=== PATIENT | female | born 1975 | race Caucasian/White ===

== ENCOUNTER 2016-09-30 22:58 | Emergency (ER) | payer OTHER ==
[~2016-09-30] VITALS: Ht 160 cm; Wt 116.0 kg
[2016-09-30 23:07] VITALS: BP 129/75; PULSE 77; RESP 18; TEMP 98.5; O2SAT 95
[2016-09-30] MEDS ORDERED: DIFL150T PO (23:09)
--- NOTE | 2016-09-30 23:09 | PD ---
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 no pelvic or abdominal pain. no n/v/d. no fever/chills. pruritus and burning has become moderate and constant. lmp last month however patient does not recall exact date. pt has recently begun sexual intercourse with her boyfriend however is doubtful she has an STD. PFSH Social History Tobacco Use: Yes (/2 PPD) Allergies-Medications (Allergen,Severity, Reaction): Coded Allergies: No Known Allergies (Unverified , 09/30/16) Reported Meds & Prescriptions Reported Meds & Active Scripts Active Reported [Depression] Unknown Dose PO HS Levothyroxine (Levothyroxine Sodium) 25 Mcg Tab Unknown Dose PO DAILY Review of Systems General / Constitutional: No: Fever Genitourinary: No: Urgency, Frequency, Dysuria, Nocturia, Hematuria, Decreased Urinary Output, Pelvic Pain, Flank Pain, Dyspareunia Physical Exam Narrative GENERAL: 41 yo F, WNWD, NAD, speaking full sentences SKIN: Warm and dry. CARDIOVASCULAR: Regular rate and rhythm without murmurs, gallops, or rubs. RESPIRATORY: Breath sounds equal bilaterally. No accessory muscle use. GASTROINTESTINAL: Abdomen soft, non-tender, nondistended. MUSCULOSKELETAL: No cyanosis, or edema. BACK: Nontender without obvious deformity. No CVA tenderness. Data Data Last Documented VS Vital Signs Date Time Temp Pulse Resp B/P Pulse Ox O2 Delivery O2 Flow Rate FiO2 09/30/16 23:07 98.5 77 18 129/75 95 VS reviewed Orders Fluconazole (Diflucan) (09/30/16 23:30) MDM Medical Decision Making Medical Screen Exam Complete: Yes Emergency Medical Condition: Yes Medical Record Reviewed: Yes Differential Diagnosis BV, STD, candidiasis, TOA considered unlikely Narrative Course diflucan script. work note provided at patient's request. return precautions discussed. pt ok for discharge. 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 Hopefully, we have met your expectations on today's visit. You are welcome to return to [facility] at any time, as we are committed to meeting the health care needs of our community. Med/Other Pt SpecificInfo: Prescription(s) given Disposition: 01 DISCHARGE HOME Condition: Chance Mccoy MD Sep 30, 2016 23:09
[2016-09-30] MEDS ORDERED: LEVO25TA4 PO (23:12)
[2016-09-30] MEDS ORDERED: [UNRECOGNIZED DRUG - OTHER] (23:12)
[2016-09-30] MEDS ORDERED: Depression PO (23:13)
[2016-09-30] MEDS ORDERED: FLUCONAZOLE 100 MG TAB PO ONE (23:30)
== END 2016-09-30 23:35 | disposition home or self-care (01) ==
LOC: PHED 22:58
DX: B37.3 Candidiasis of vulva and vagina (principal)
CPT/HCPCS: 99283

== ENCOUNTER 2017-03-16 10:09 | Emergency (ER) | payer OTHER ==
[~2017-03-16] VITALS: Ht 160 cm; Wt 125.0 kg
[~2017-03-16 10:09] MED LIST: Depression PO; LEVO25TA4 PO
[2017-03-16 10:15] VITALS: BP 131/97; PULSE 80; RESP 16; TEMP 98.4; O2SAT 99
--- NOTE | 2017-03-16 11:00 | PD ---
HPI Chief Complaint: Musculoskeletal Complaint Time Seen by Provider: 10:54 Travel History International Travel<30 days: No Contact w/Intl Traveler<30days: No Traveled to known affect area: No History of Present Illness HPI 42-year-old female presents to the emergency department for evaluation of right ankle injury that occurred approximately one month ago. She states she rolled her ankle. She denies any other injury. No head drowsy. No neck pain or back pain. No chest pain or abdominal pain. No nausea, vomiting, diarrhea. She states she broke her foot as a child. She states she felt the patient would get better, but has not. She reports history of hypothyroidism and takes levothyroxine. No other medical problems and she takes no other prescribed medications. She is taken Tylenol ibuprofen for the pain. Severity is mild to moderate. Exacerbating factors are walking and movement. Alleviating factors rest. No radiation of pain. PFSH Past Medical History Depression: Yes Migraines: Yes Thyroid Disease: Yes (HYPOTHYROIDISM) ?: Not : 3 Para: 1 : 2 Past Surgical History Section: Yes (1995) Cholecystectomy: Yes Social History Alcohol Use: Yes ("ONCE IN A BLUE [employer]") Tobacco Use: Yes (1PPD) Substance Use: No Allergies-Medications (Allergen,Severity, Reaction): Coded Allergies: No Known Allergies (Unverified Adverse Reaction, Unknown, 03/16/17) Reported Meds & Prescriptions Reported Meds & Active Scripts Active Reported Levothyroxine (Levothyroxine Sodium) 25 Mcg Tab Unknown Dose PO DAILY Review of Systems Except as stated in HPI: all other systems reviewed are Neg Physical Exam Narrative GENERAL: Well-nourished, well-developed female patient, afebrile. SKIN: Focused skin assessment warm/dry. No erythema or warmth over right ankle. No lacerations or abrasions. HEAD: Normocephalic. Atraumatic. EYES: No scleral icterus. No injection or drainage. NECK: Supple, trachea midline. No JVD or lymphadenopathy. CARDIOVASCULAR: Regular rate and rhythm without murmurs, gallops, or rubs. RESPIRATORY: Breath sounds equal bilaterally. No accessory muscle use. Lungs sounds are clear to auscultation GASTROINTESTINAL: Abdomen soft, non-tender, nondistended. MUSCULOSKELETAL: No cyanosis, or edema. Shows tenderness over right medial ankle. No obvious deformity. Patient has full sensation in the distal right lower extremity. Right pedal pulse is 2+. BACK: Nontender without obvious deformity. No CVA tenderness. Data Data Last Documented VS Vital Signs Date Time Temp Pulse Resp B/P (MAP) Pulse Ox O2 Delivery O2 Flow Rate FiO2 03/16/17 10:15 98.4 80 16 131/97 (108) 99 Orders Orders Ankle, Complete ([id number]) (03/16/17 ) [facility] Medical Decision Making Medical Screen Exam Complete: Yes Emergency Medical Condition: Yes Medical Record Reviewed: Yes Interpretation(s) x-ray right ankle - CONCLUSION: Unremarkable examination of the right ankle. Differential Diagnosis Fracture versus dislocation versus contusion versus sprain versus muscle strain Narrative Course 42-year-old female presents to the emergency department for evaluation of right ankle pain for 1 month after she rolled her ankle. No evidence of septic joint on exam. X-ray of the right ankle is ordered and pending. X-ray of the right ankle is unremarkable. Patient is given Deangelo bandage and crutches. She is instructed to follow-up with orthopedist if pain continues or worsens. She verbalizes agreement and understanding. The patient was discharged in stable condition with instructions, including return instructions and follow up instructions. Diagnosis Primary Impression: Right ankle sprain Qualified Codes: S93.401A - Sprain of unspecified ligament of right ankle, initial encounter Referrals: Orthopedist call for appointment Patient Instructions: Ankle Sprain (ED), General Instructions Additional Instructions: Wear Deangelo bandage use crutches as needed for support. Take ibuprofen as directed as needed with food for pain. Elevate. Heating pad on low for 20 minutes 4-5 times daily. Follow-up with orthopedist if pain continues or worsens. Return to the emergency department for any acute worsening of symptoms. Med/Other Pt SpecificInfo: Prescription(s) given Scripts Ibuprofen (Ibuprofen) 600 Mg Tab 600 MG PO TID Y for PAIN SCALE 1 TO 10, #21 TAB 0 Refills Prov: Arabella Omalley BRENDAN 03/16/17 Disposition: 01 DISCHARGE HOME Condition: Stable Arabella Omalley Mar 16, 2017 11:00
--- NOTE | 2017-03-16 11:15 | RADRPT ---
EXAM DATE/TIME: 03/16/2017 11:04 [facility] COMPARISON: No previous studies available for comparison. INDICATIONS : Right ankle pain; twisted ankle 1 month ago. MEDICAL HISTORY : None. SURGICAL HISTORY : None. ENCOUNTER: Initial ACUITY: 1 month PAIN SCORE: 7/10 LOCATION: Right medial ankle. FINDINGS: Three view exam was performed of the right ankle. The bony structures are in normal alignment. No e vidence of fracture, dislocation, or soft tissue swelling. The ankle mortise is intact. No radiopaq ue foreign bodies are seen. Bony mineralization is normal. CONCLUSION: Unremarkable examination of the right ankle. Dioni Mares Jr., MD on March 16, 2017 at 11:07 Board Certified Radiologist. This report was verified electronically.
[2017-03-16] MEDS ORDERED: IBUP-232 PO (11:36)
== END 2017-03-16 11:55 | disposition home or self-care (01) ==
LOC: PHEFT 10:09
DX: S93.401A Sprain of unspecified ligament of right ankle, initial encounter (principal); E03.9 Hypothyroidism, unspecified; F17.200 Nicotine dependence, unspecified, uncomplicated; Z86.59 Personal history of other mental and behavioral disorders; Z86.69 Personal history of other diseases of the nervous system and sense organs; X50.1XXA Overexertion from prolonged static or awkward postures, initial encounter
CPT/HCPCS: 73610; 99283; E0113